=== PATIENT | male | born 1990 | race Caucasian/White ===

== ENCOUNTER 2022-06-30 19:03 | Emergency (ER) | payer OTHER, SELFPAY ==
--- NOTE | ~2022-06-30 | US_ITS ---
EXAMINATION: US ABDOMEN LIMITED CLINICAL INFORMATION: Right upper quadrant pain. COMPARISON: None TECHNIQUE: Real-time imaging of the right upper quadrant abdominal viscera. FINDINGS: PANCREAS: Normal. LIVER: The liver is normal in size. The liver contour is normal. Parenchymal echogenicity is increased. No focal hepatic lesion. There is no intrahepatic biliary duct dilatation seen. GALLBLADDER: Normal. The gallbladder is physiologically distended without evidence of stones, sludge, polyps, wall thickening or pericholecystic fluid. COMMON BILE DUCT: Normal in caliber measuring 0.2 cm in diameter. RIGHT KIDNEY: Normal. No hydronephrosis. No renal calculi or focal parenchymal lesions. The kidney measures 12.4 cm in maximum dimension. FREE FLUID: None. US/US abdomen limited IMPRESSION: Hepatic steatosis without focal lesion. Visualized pancreas, gallbladder, CBD and right kidney is unremarkable.
[2022-06-30 19:41] VITALS: BP 128/70; PULSE 82; RESP 18; O2SAT 97; BMI 42.5
--- NOTE | 2022-06-30 19:43 | ED_ITS ---
HPI - Abdominal Pain General Chief Complaint: Abdominal Pain <TONIA Tejada - Last Filed: 06/30/22 19:44> Stated Complaint: Abdominal pain <TONIA Tejada - Last Filed: 06/30/22 19:44> Time Seen by Provider: 07/01/22 01:35 <TONIA Tejada - Last Filed: 06/30/22 19:44> Source: patient and family <Millicent Orantes MD - Last Filed: 07/01/22 01:56> Mode of arrival: ambulatory <Millicent Orantes MD - Last Filed: 07/01/22 01:56> Limitations: no limitations <Millicent Orantes MD - Last Filed: 07/01/22 01:56> History of Present Illness HPI narrative: 32-year-old male came in for complaint of upper abdominal/ right upper quadrant abdominal pain for 2 days. Pain is constant mostly localized to the epigastric/ right upper quadrant area described as dull aching pain and moderate 5/10, no radiation, sometimes is worse with food otherwise no relieving factor, patient smokes marijuana every day but do not drink alcohol never had similar symptoms in the past, no history of abdominal surgery, no dysuria, no frequency urination.Pain sometimes associ ated with nausea but no vomiting or diarrhea. Normal bowel movement last BM was earlier today. <Millicent Orantes MD - Last Filed: 07/01/22 01:56> Related Data Home Medications: Previous Rx's Medication Instructions Recorded cyclobenzaprine 10 mg tablet 10 mg PO TID PRN muscle spasm #90 11/10/21 tabs gabapentin 300 mg capsule 300 mg PO BEDTIME #30 caps 11/10/21 omeprazole magnesium 20 mg 20 mg PO BID #30 tabs 07/01/22 tablet,delayed release (Prilosec OTC) <TONIA Tejada - Last Filed: 06/30/22 19:44> Allergies/Adverse Reactions: Allergies Allergy/AdvReac Type Severity Reaction Status Date / Time ibuprofen [From Motrin] Allergy Unknown hematuria Verified 11/10/21 12:16 <TONIA Tejada Last Filed: 06/30/22 19:44> Review of Systems Review of Systems All other systems are reviewed and are negative Constitutional: Reports as per HPI and Reports no additional constitutional complaints Eyes: Reports as per HPI and Reports no additional eye complaints Reports system reviewed and no additional complaints, except as documented Cardiovascular: Reports as per HPI and Reports no additional cardiovascular complaints Respiratory: Reports as per HPI and Reports no additional respiratory complaints Gastrointestinal: Reports as per HPI and Reports no additional gastrointestinal complaints Genitourinary: Reports no additional female genitourinary complaints Musculoskeletal: Reports no additional musculoskeletal complaints Skin/Breast: Reports system reviewed and no additional complaints, except as docu Psychiatric: Reports no additional psychiatric complaints Endocrine: Reports no additional endocrine complaints Hematologic/Lymphatic: Reports no additional hematologic/lymphatic complaints Allergic/Immunologic: Reports no additional allergic/immunologic complaints Reports system reviewed and no additional complaints, except as documented and Reports Abnormal speech present <Millicent Orantes MD - Last Filed: 07/01/22 01:56> [facility], [facility] Past Medical History Surgical History: Surgical History No pertinent past surgical history <TONIA Tejada - Last Filed: 06/30/22 19:44> Family History Family History: Family History Father Medical history unknown Mother Medical history unknown Brother In good health Brother In good health Brother No problems noted. Brother In good health <TONIA Tejada - Last Filed: 06/30/22 19:44> Social History Social History: Social History Housing: Apartment Patient Tobacco Use Status: Never used Tobacco Advance Directives: No Advance Directives Information Provided: No service: No <TONIA Tejada - Last Filed: 06/30/22 19:44> Physical Exam ED Vital Signs: Vital Signs - 24 hr 06/30/22 19:41 06/30/22 19:45 07/01/22 00:32 Temperature 98.2 F 98.3 F Pulse Rate 82 80 Respiratory Rate 18 18 Blood Pressure 128/70 117/67 Pulse Oximetry 97 98 Oxygen Delivery Method Room Air 07/01/22 01:07 Temperature 99.2 F Pulse Rate 84 Respiratory Rate 16 Blood Pressure 125/67 Pulse Oximetry 97 Oxygen Delivery Method Room Air BMI result Body Mass Index 42.5 <TONIA Tejada - Last Filed: 06/30/22 19:44> Vital Signs - 24 hr 06/30/22 19:41 06/30/22 19:45 07/01/22 00:32 Temperature 98.2 F 98.3 F Pulse Rate 82 80 Respiratory Rate 18 18 Blood Pressure 128/70 117/67 Pulse Oximetry 97 98 Oxygen Delivery Method Room Air 07/01/22 01:07 Temperature 99.2 F Pulse Rate 84 Respiratory Rate 16 Blood Pressure 125/67 Pulse Oximetry 97 Oxygen Delivery Method Room Air BMI result Body Mass Index 42.5 vital signs have been reviewed as appeared to be correct. Blood pressure normal. Heart rate normal. Respiration rate normal. Temperature normal. Oxygen saturation normal. <Millicent Orantes MD - Last Filed: 07/01/22 01:56> Appearance: Alert. Oriented X3. No acute distress. Head: Normal external exam. Normocephalic. Atraumatic. No Weller signs noted. No raccoon eyes noted Eyes: PERRLA. EOMI. Conjunctiva and sclera normal. Eyelids normal. ENT: TM's Normal. Pharynx normal. Uvula midline. Moist mucous membranes. No trismus noted. No drooling noted. No muffled voice noted. Neck: Normal inspection. Neck supple. FROM. No adenopathy. Thyroid Normal. No meningeal signs. No neck mass noted. CVS: Normal heart rate and rhythm. Heart sound normal. No murmurs noted. Pulses normal throughout. Respiratory: No respiratory distress. Painless inspiration. Breath sounds normal. No wheezes/rales/rhonchi noted. Chest nontender. No accessory muscle u rela noted or decreased air movement noted. Abdomen: Obese, Soft and nontender. Bowel sounds normal in all 4 quadrants. No distention noted. No organomegaly noted. No visible injury noted. Back: No CVA tenderness. Full range of motion noted. Skin: Skin warm and dry. Normal skin color. Normal skin turgor. No rashes/lesions/lacerations noted. Extremities: No lower extremity edema. Extremities exhibit normal range of motion. Extremities nontender. Neuro: Oriented X 3. Cranial nerve exam: II-XII are grossly intact No motor deficit. No sensory deficit. Reflexes normal. <Millicent Orantes MD - Last Filed: 07/01/22 01:56> Course Course Course Narrative: 1941 32 yo M hx of obesity presents w/ epigastric/RUQ pain X2 days w/ some associated nausea. PE w/ mild ruq tenderness Plan- UA, labs, imaging <TONIA Tejada - Last Filed: 06/30/22 19:44> Reevaluation(s) Reevaluation #1: upper abdominal pain for 2 days, now pain is improved while in the ED, physical exam and history is consistent with gastritis will start the patient on Prilosec and follow-up with GI. <Millicent Orantes MD - Last Filed: 07/01/22 01:56> Medical Decision Making Differential Diagnosis Differential Diagnoses: The differential diagnosis associated with the presentation includes ( Gastritis, pancreatitis, gallbladder disease, liver disease.) <Millicent Orantes MD - Last Filed: 07/01/22 01:56> Lab Data MDM Lab Attestation statement: I reviewed the patient's lab results. <Millicent Orantes MD - Last Filed: 07/01/22 01:56> Result Diagrams: : 06/30/22 20:03 06/30/22 20:03 <TONIA Tejada - Last Filed: 06/30/22 19:44> Labs: Lab Results 06/30/22 06/30/22 06/30/22 Range/Units 20:03 20:03 20:06 WBC 7.6 (4.8-10.8) X10*3/uL RBC 5.71 (4.60-5.80) X10*6/uL Hgb 15.4 (14.0-18.0) g/dl Hct 46.3 (42.0-52.0) % MCV 81.1 (80.0-98.0) fL MCH 27.0 (27.0-33.0) pg MCHC 33.3 (31.0-36.0) g/dl RDW 12.6 (11.0-16.0) % Plt Count 301 (160-400) X10*3/uL MPV 9.2 L (9.4-12.4) fL Immature Gran % (Auto) 0.9 H (0.0-0.4) % Neut % (Auto) 59.1 (45-73) % Lymph % (Auto) 25.9 (20-40) % [place] % (Auto) 12.0 H (2-11) % Eos % (Auto) 0.9 (0-4) % Baso % (Auto) 1.2 (0-2) % Lymph # (Auto) 2.0 (1.2-4.9) X10*3/uL [place] # (Auto) 0.9 (0.1-1.2) X10*3/uL Eos # (Auto) 0.1 (0.0-0.4) X10*3/uL Baso # (Auto) 0.1 (0.0-0.2) X10*3/uL Abs Immat Gran (auto) 0.07 H (0.00-0.03) X10*3/uL Absolute Neuts (auto) 4.5 (2.0-8.3) x10*3/uL Absolute Nucleated RBC 0.000 (0.0-0.012) X10*3/uL Nucleated RBC % (auto) 0.0 (0.0-0.2) /100WBC Sodium 139 (135-145) mmol/L Potassium 4.4 (3.3-5.1) mmol/L Chloride 104 (96-108) mmol/L Carbon Dioxide 28 (22-29) mmol/L Anion Gap 11 L (12-20) BUN 9 (9-16) mg/dL Creatinine 0.75 (0.5-1.4) mg/dL Estim Creat Clear Calc 187.0 Estimated GFR > 60 Random Glucose 92 (60-115) mg/dL Calcium 9.7 (8.4-10.2) mg/dL Magnesium 2.1 (1.6-2.6) mg/dL Total Bilirubin 0.6 (0.0-1.0) mg/dL AST 30 (5-37) U/L ALT 51 H (0-40) U/L Alkaline Phosphatase 103 (39-117) U/L Total Protein 8.1 H (6.5-8.0) g/dL Albumin 4.8 (3.5-5.0) g/dL Lipase 10 (8-78) U/L Urine Color Yellow Urine Appearance Clear Urine pH 7.5 (5.0-9.0) Ur Specific [place] 1.010 (1.005-1.025) Urine Protein Negative (Neg-Trace) mg/dL Urine Glucose (UA) Negative (Negative) mg/dL Urine Ketones Negative (Negative) mg/dL Urine Blood Negative (Negative) Urine Nitrite Negative (Negative) Ur Leukocyte Esterase Negative (Negative) <TONIA Tejada - Last Filed: 06/30/22 19:44> Lab Results 06/30/22 06/30/22 06/30/22 Range/Units 20:03 20:03 20:06 WBC 7.6 (4.8-10.8) X10*3/uL RBC 5.71 (4.60-5.80) X10*6/uL Hgb 15.4 (14.0-18.0) g/dl Hct 46.3 (42.0-52.0) % MCV 81.1 (80.0-98.0) fL MCH 27.0 (27.0-33.0) pg MCHC 33.3 (31.0-36.0) g/dl RDW 12.6 (11.0-16.0) % Plt Count 301 (160-400) X10*3/uL MPV 9.2 L (9.4-12.4) fL Immature Gran % (Auto) 0.9 H (0.0-0.4) % Neut % (Auto) 59.1 (45-73) % Lymph % (Auto) 25.9 (20-40) % [place] % (Auto) 12.0 H (2-11) % Eos % (Auto) 0.9 (0-4) % Baso % (Auto) 1.2 (0-2) % Lymph # (Auto) 2.0 (1.2-4.9) X10*3/uL [place] # (Auto) 0.9 (0.1-1.2) X10*3/uL Eos # (Auto) 0.1 (0.0-0.4) X10*3/uL Baso # (Auto) 0.1 (0.0-0.2) X10*3/uL Abs Immat Gran (auto) 0.07 H (0.00-0.03) X10*3/uL Absolute Neuts (auto) 4.5 (2.0-8.3) x10*3/uL Absolute Nucleated RBC 0.000 (0.0-0.012) X10*3/uL Nucleated RBC % (auto) 0.0 (0.0-0.2) /100WBC Sodium 139 (135-145) mmol/L Potassium 4.4 (3.3-5.1) mmol/L Chloride 104 (96-108) mmol/L Carbon Dioxide 28 (22-29) mmol/L Anion Gap 11 L (12-20) BUN 9 (9-16) mg/dL Creatinine 0.75 (0.5-1.4) mg/dL Estim Creat Clear Calc 187.0 Estimated GFR > 60 Random Glucose 92 (60-115) mg/dL Calcium 9.7 (8.4-10.2) mg/dL Magnesium 2.1 (1.6-2.6) mg/dL Total Bilirubin 0.6 (0.0-1.0) mg/dL AST 30 (5-37) U/L ALT 51 H (0-40) U/L Alkaline Phosphatase 103 (39-117) U/L Total Protein 8.1 H (6.5-8.0) g/dL Albumin 4.8 (3.5-5.0) g/dL Lipase 10 (8-78) U/L Urine Color Yellow Urine Appearance Clear Urine pH 7.5 (5.0-9.0) Ur Specific [place] 1.010 (1.005-1.025) Urine Protein Negative (Neg-Trace) mg/dL Urine Glucose (UA) Negative (Negative) mg/dL Urine Ketones Negative (Negative) mg/dL Urine Blood Negative (Negative) Urine Nitrite Negative (Negative) Ur Leukocyte Esterase Negative (Negative) <Millicent Orantes MD - Last Filed: 07/01/22 01:56> Independent Interpretation I performed an independent interpretation of an: Ultrasound ( Abdomen: No acute pathology.) <Millicent Orantes MD - Last Filed: 07/01/22 01:56> Radiology Impression Discussion of test interpretation with radiology: I have reviewed the radiologist's reading. <Millicent Orantes MD - Last Filed: 07/01/22 01:56> Discharge Plan Discharge Clinical Impression: Epigastric pain, Gastritis <TONIA Tejada - Last Filed: 06/30/22 19:44> Patient Disposition: Home, Self-Care <TONIA Tejada - Last Filed: 06/30/22 19:44> Instructions: Gastritis (ED) <TONIA Tejada - Last Filed: 06/30/22 19:44> Prescriptions: New omeprazole magnesium [Prilosec OTC] 20 mg tablet,delayed release (DR/EC) 20 mg PO BID Qty: 30 0RF No Action cyclobenzaprine 10 mg tablet 10 mg PO TID PRN (Reason: muscle spasm) Qty: 90 0RF gabapentin 300 mg capsule 300 mg PO BEDTIME Qty: 30 0RF <TONIA Tejada - Last Filed: 06/30/22 19:44> Referrals: Khadra Conte MD [Physician] - Josseline Rodriguez NP [Primary Care Provider] - <TONIA Tejada - Last Filed: 06/30/22 19:44>
[2022-06-30 19:45] VITALS: TEMP 36.8
[2022-06-30 20:06] LABS: MANUAL DIFF FLAG NO
[2022-06-30 20:07] LABS: Basophils Absolute Auto 0.1 X10*3/uL (0.0-0.2); Basophils Percent Auto 1.2 % (0-2); Eosinophils Absolute Auto 0.1 X10*3/uL (0.0-0.4); Eosinophils Percent Auto 0.9 % (0-4); Hematocrit 46.3 % (42.0-52.0); Hemoglobin 15.4 g/dl (14.0-18.0); Imm Gran Abs Auto 0.07 X10*3/uL (0.00-0.03); Imm Gran Pct Auto 0.9 % (0.0-0.4); Lymphocytes Percent Auto 25.9 % (20-40); Mean Corpuscular HGB Conc 33.3 g/dl (31.0-36.0); Mean Corpuscular Volume 81.1 fL (80.0-98.0); Mean Platelet Volume 9.2 fL (9.4-12.4); Monocytes Absolute Auto 0.9 X10*3/uL (0.1-1.2); Neutrophils Absolute Auto 4.5 x10*3/uL (2.0-8.3); Neutrophils Percent Auto 59.1 % (45-73); Platelet Count 301 X10*3/uL (160-400); Red Blood Count 5.71 X10*6/uL (4.60-5.80); Red Cell Distribution Width 12.6 % (11.0-16.0); White Blood Count 7.6 X10*3/uL (4.8-10.8)
[2022-06-30 20:13] LABS: Appearance Urine Clear; Color Urine Yellow; Glucose Urine UA Negative (Negative); Leukocyte Esterase Urine Negative (Negative); Nitrite Urine Negative (Negative); PH 7.5 (5.0-9.0); Urine Blood Negative (Negative); Urine Ketones Negative (Negative); Urine Protein Negative (Neg-Trace)
[2022-06-30 20:40] LABS: Alanine Aminotransferase 51 U/L (0-40); Albumin Level 4.8 g/dL (3.5-5.0); Alkaline Phosphatase 103 U/L (39-117); Anion Gap 11 (12-20); Aspartate Amino Transferase 30 U/L (5-37); Bilirubin Total 0.6 mg/dL (0.0-1.0); Blood Urea Nitrogen 9 mg/dL (9-16); Calcium 9.7 mg/dL (8.4-10.2); Carbon Dioxide 28 mmol/L (22-29); Chloride 104 mmol/L (96-108); Estimated Glomerular Filt Rate > 60; Glucose Random 92 mg/dL (60-115); Lipase 10 U/L (8-78); Magnesium 2.1 mg/dL (1.6-2.6); Potassium 4.4 mmol/L (3.3-5.1); Sodium 139 mmol/L (135-145); Total Protein 8.1 g/dL (6.5-8.0)
[2022-07-01 00:32] VITALS: BP 117/67; PULSE 80; RESP 18; TEMP 36.8; O2SAT 98
[2022-07-01 01:07] VITALS: BP 125/67; PULSE 84; RESP 16; TEMP 37.3; O2SAT 97
[2022-07-01] MEDS: Omeprazole 40 MG CAPSULE.DR PO (02:19)
[2022-07-01] MEDS: Magnesium Hydrox/Alum Hydrox 30 ML ORAL.SUSP PO (02:19)
== END 2022-07-01 02:22 | disposition home or self-care (01) ==
PROVIDERS: Physician Assistant; Emergency Provider Emergency Medicine; PCP Hospitalist
DX: K29.70 Gastritis, unspecified, without bleeding (principal); R10.11 Right upper quadrant pain; R10.13 Epigastric pain; Z79.899 Other long term (current) drug therapy
CPT/HCPCS: 36415; 76705; 80053; 81003; 83690; 83735; 85025; 99283; 99284

== ENCOUNTER 2024-02-22 20:21 | Emergency (ER) | payer OTHER, SELFPAY ==
[2024-02-22 20:47] VITALS: BP 119/77; PULSE 94; RESP 16; TEMP 36.7; O2SAT 97; BMI 41.0
--- NOTE | 2024-02-22 20:49 | ED.GENADULT ---
HPI - General Adult General Stated complaint: rt side ache/drinking fluids not going to bathroom Related Data Previous Rx's ?Medication ?Instructions ?Recorded cyclobenzaprine 10 mg tablet 10 mg PO TID PRN muscle spasm #90 11/10/21 tabs gabapentin 300 mg capsule 300 mg PO BEDTIME #30 caps 11/10/21 omeprazole magnesium 20 mg 20 mg PO BID #30 tabs 07/01/22 tablet,delayed release (Prilosec OTC) Allergies Allergy/AdvReac Type Severity Reaction Status Date / Time ibuprofen [From Motrin] Allergy Unknown hematuria Verified 11/10/21 12:16 PMFSH Past Medical History Surgical History No pertinent past surgical history Family History Family History Father Medical history unknown Mother Medical history unknown Brother In good health Brother In good health Brother No problems noted. Brother In good health Social History Social History Housing: Apartment Patient Tobacco Use Status: Never used Tobacco service: No Course Course Course Narrative: RME, this is a rapid medical exam performed by Dustin Mejia please refer to primary provider for complete H&P- 33-year-old male presents for evaluation of lower abdominal/pelvic pain for last 3 days. Also reports some flank pain. He reports burning with urination decreased urination. Plan for labs, urinalysis and bladder scan Discharge Plan Discharge Prescriptions: No Action omeprazole magnesium [Prilosec OTC] 20 mg tablet,delayed release (DR/EC) 20 mg PO BID Qty: 30 0RF cyclobenzaprine 10 mg tablet 10 mg PO TID PRN (Reason: muscle spasm) Qty: 90 0RF gabapentin 300 mg capsule 300 mg PO BEDTIME Qty: 30 0RF Print Language: Bengali
[2024-02-22 21:11] LABS: MANUAL DIFF FLAG NO
[2024-02-22 21:12] LABS: Basophils Absolute Auto 0.1 X10*3/uL (0.0-0.2); Basophils Percent Auto 0.7 % (0-2); Eosinophils Percent Auto 0.4 % (0-4); Hematocrit 44.9 % (42.0-52.0); Hemoglobin 15.4 g/dl (14.0-18.0); Imm Gran Abs Auto 0.06 X10*3/uL (0.00-0.03); Imm Gran Pct Auto 0.7 % (0.0-0.4); Lymphocytes Absolute Auto 2.1 X10*3/uL (1.2-4.9); Lymphocytes Percent Auto 23.6 % (20-40); Mean Corpuscular HGB Conc 34.3 g/dl (31.0-36.0); Mean Corpuscular Hemoglobin 27.7 pg (27.0-33.0); Mean Corpuscular Volume 80.9 fL (80.0-98.0); Mean Platelet Volume 9.3 fL (9.4-12.4); Monocytes Absolute Auto 0.9 X10*3/uL (0.1-1.2); Monocytes Percent Auto 9.8 % (2-11); Neutrophils Absolute Auto 5.9 x10*3/uL (2.0-8.3); Neutrophils Percent Auto 64.8 % (45-73); Platelet Count 347 X10*3/uL (160-400); Red Blood Count 5.55 X10*6/uL (4.60-5.80); Red Cell Distribution Width 12.6 % (11.0-16.0); White Blood Count 9.1 X10*3/uL (4.8-10.8)
[2024-02-22 21:15] LABS: Appearance Urine Clear; Color Urine Dark Yellow; Glucose Urine UA Negative (Negative); Leukocyte Esterase Urine Negative (Negative); Nitrite Urine Negative (Negative); PH 5.5 (5.0-9.0); Specific Gravity - Urine >= 1.030 (1.005-1.025); UMIC TRIGGER UACC YES; Urine Blood Small (1+) (Negative); Urine Ketones 15 mg/dL (Negative); Urine Protein 30 (1+) mg/dL (Neg-Trace)
[2024-02-22 21:29] LABS: Alanine Aminotransferase 54 U/L (0-40); Alkaline Phosphatase 97 U/L (39-117); Anion Gap 16 (12-20); Aspartate Amino Transferase 30 U/L (5-37); Bilirubin Total 0.8 mg/dL (0.0-1.0); Blood Urea Nitrogen 11 mg/dL (9-16); Calcium 10.4 mg/dL (8.4-10.2); Carbon Dioxide 24 mmol/L (22-29); Chloride 104 mmol/L (96-108); Creatinine Clr Calc Pharmacy 168.2; Estimated Glomerular Filt Rate > 60; Glucose Random 98 mg/dL (60-115); Lipase 8 U/L (8-78); Potassium 3.5 mmol/L (3.3-5.1); Sodium 140 mmol/L (135-145); Total Protein 8.7 g/dL (6.5-8.0)
[2024-02-22 21:54] LABS: Bacteria Urine None Seen (None Seen); WBC Urine 0-5 /HPF (0-5)
--- NOTE | 2024-02-23 02:45 | PC.NURSE ---
pt told this RN he has to leave to go waste picker his car and that he is going to check back in later today to be seen. MD aware however pt says he cannot wait. pt in no apparent distress ambulates with steady gait on his way out of tx room 2
--- NOTE | 2024-02-23 03:16 | PC.NURSE ---
Pt presented to transformation analyst about leaving without being seen. See Note from Charity for details.
== END 2024-02-23 03:19 | disposition left against medical advice (07) ==
PROVIDERS: Physician Assistant; Emergency Provider Emergency Medicine; PCP Internal Medicine
DX: R10.2 Pelvic and perineal pain (principal); Z79.899 Other long term (current) drug therapy
CPT/HCPCS: 36415; 80053; 81001; 83690; 85025; 99281; 99284

== ENCOUNTER 2024-02-23 03:27 | Emergency (ER) | payer OTHER, SELFPAY ==
--- NOTE | ~2024-02-23 | CT_ITS ---
EXAMINATION: CT ABDOMEN AND PELVIS WITHOUT CONTRAST CLINICAL INFORMATION: Right flank pain, hematuria COMPARISON: CT scan of abdomen and pelvis on 12/22/2014 TECHNIQUE: Multidetector volumetric imaging was performed from the superior aspect of the liver through the pubic symphysis. Sagittal and coronal reformatted images were obtained on the technologist's workstation. This CT examination was performed using dose optimization techniques as appropriate, variously including the following: *Automated exposure control *Adjustment of mA and/or kV according to patient size (this includes techniques or standardized protocols for targeted exams where dose is matched to indication/reason for exam; i.e. extremities or head) *Use of iterative reconstruction technique DLP: 823 mGy-cm FINDINGS: CT ABDOMEN LUNG BASES: Bilateral lung bases are clear. LIVER: There is persistent hepatic steatosis, mean attenuation of 13 Hounsfield units, compared to splenic attenuation of 31 Hounsfield units. GALLBLADDER AND BILIARY TREE: Gallbladder appears unremarkable without calcified stones. Common bile duct is not dilated. SPLEEN: There is persistent mild splenomegaly, measuring 15.0 cm in AP length (previously 15.5 cm). PANCREAS: The pancreas appears unremarkable on noncontrast enhanced images. ADRENAL GLANDS: Right adrenal body low density lesion is seen measuring 1.7 x 1.6 cm in size, mean attenuation of -2.4 Hounsfield units, consistent with benign adenoma. Left adrenal gland is normal in shape and size. KIDNEYS: The visualized bilateral kidneys are normal in size without stones. No caliectasis or dilated pelvis is seen. No dilated ureters are found. BOWELS: There is no abnormal dilatation of the large and small bowel loops. RETROPERITONEUM: No abnormally enlarged retroperitoneal lymph nodes, mass or hematoma could be seen. BLOOD VESSELS: Abdominal aorta is normal in size and smooth in outline. ABDOMINAL WALL: Abdominal subcutaneous tissue and muscle are intact. No evidence of ventral hernia. PERITONEUM: There is no ascites. There were no abdominal peritoneal inflammatory changes seen. No free peritoneal air was seen. BONES: No fracture or dislocation. No focal bone lesion diagnostic of metastatic disease could be seen in the lumbar region. CT PELVIS URINARY BLADDER: The visualized urinary bladder is normal, filled with urine. No intraluminal stones are found. No abnormally dilated distal ureters are seen. BOWELS: There is no abnormal dilatation of the large and small bowel loops. Normal appendix is seen projecting medial and inferior to the cecum. GENITAL ORGANS: Seminal vesicles are unremarkable. Prostate gland is normal. LYMPH NODES: No abnormally enlarged iliac or inguinal lymph nodes are seen. PERITONEUM: No inflammatory changes, ascites or free peritoneal air are found in the pelvis. BONES: No fracture or dislocation. No focal bone lesion diagnostic of metastatic disease could be seen in the pelvis. CT/CT abdomen pelvis wo IV con IMPRESSION: 1. Unchanged, No evidence of radiopaque urinary tract calculi or obstructive uropathy. 2. Persistent Hepatic steatosis. 3. Interval development of Right adrenal adenoma. 4. Interval decrease in Mild splenomegaly. Fleischner guidelines were followed. Electronically signed by: Edison Bravo MD 02/23/2024 09:22 AM EDT
[2024-02-23 03:37] VITALS: BP 124/77; PULSE 78; RESP 16; TEMP 36.7; O2SAT 98; BMI 41.5
[2024-02-23 06:18] VITALS: BP 114/76; PULSE 88; RESP 16; TEMP 36.7; O2SAT 96
--- NOTE | 2024-02-23 07:36 | ED_ITS ---
HPI - Abdominal Pain General Chief Complaint: Abdominal Pain Stated Complaint: gen med, was here earlier Time Seen by Provider: 02/23/24 07:35 Source: patient Mode of arrival: ambulatory Limitations: no limitations History of Present Illness ED Provider: Dylan Paz PA-C HPI narrative: 33 yo male with history of morbid obesity presents to the ER for evaluation of 4 days of intermittent right lower quadrant pain that radiates to his right flank and right lower back. He states the pain comes and goes and is sharp in nature. Nothing seems to make it worse or better. It is not associated with any nausea, vomiting or diarrhea. He reports having normal bowel movements, last was yesterday. He denies any urinary symptoms including urgency, frequency, hematuria, dysuria. No penile discharge or scrotal pain. No history of surgery on his abdomen. MD elicited complaint: abdominal pain and flank pain Pertinent past history: none Onset (ago): day(s) (4) Pain Consistency: intermittent Location: RLQ Severity: moderate Quality: stabbing Radiation: R flank and back Migration to: no migration Exacerbating factors: nothing Relieving factors: nothing Related Data Previous Rx's ?Medication ?Instructions ?Recorded cyclobenzaprine 10 mg tablet 10 mg PO TID PRN muscle spasm #90 11/10/21 tabs gabapentin 300 mg capsule 300 mg PO BEDTIME #30 caps 11/10/21 omeprazole magnesium 20 mg 20 mg PO BID #30 tabs 07/01/22 tablet,delayed release (Prilosec OTC) cyclobenzaprine 10 mg tablet 10 mg PO TID PRN muscle spasm #10 02/23/24 tabs ibuprofen 600 mg tablet 600 mg PO Q8H PRN pain #14 tabs 02/23/24 Allergies Allergy/AdvReac Type Severity Reaction Status Date / Time ibuprofen [From Motrin] Allergy Unknown hematuria Verified 02/23/24 03:38 Review of Systems Review of Systems Yes all other systems are reviewed and are negative PMFSH Past Medical History Surgical History No pertinent past surgical history Family History Family History Father Medical history unknown Mother Medical history unknown Brother In good health Brother In good health Brother No problems noted. Brother In good health Social History Social History Housing: Apartment Patient Tobacco Use Status: Never used Tobacco Smoked in Last 30 Days: No Use of substances other than those prescribed or required for medical reasons: No Advance Directives: No Advance Directives Information Provided: No Do you have a plan to hurt others: No Plan service: No Physical Exam ED Vital Signs: Vital Signs - 24 hr 02/23/24 03:37 02/23/24 06:18 Temperature 98.0 F 98.1 F Pulse Rate 78 88 Respiratory Rate 16 16 Blood Pressure 124/77 114/76 Pulse Oximetry 98 96 Oxygen Delivery Method Room Air Room Air BMI result Body Mass Index 41.5 Appearance: Alert. Oriented X3. No acute distress. Head: normocephalic, atraumatic. Eyes: Pupils equal, round and reactive to light. ENT: Pharynx normal. No tonsillar swelling or exudate. Neck: Normal inspection. Neck supple. CVS: Normal heart rate and rhythm. Pulses normal. Respiratory: No respiratory distress. Breath sounds normal. Abdomen: Obese, Soft and nontender. +BS x4 Back: Normal inspection. Soft tissue tenderness of the right lower back, no midline tenderness. Skin: Skin warm and dry. Normal skin color. Normal skin turgor. No rashes. Extremities: No lower extremity edema. No joint swelling. Neuro/psych: Oriented X 3. No motor deficit. No sensory deficit. CN II-XII intact. Normal speech and cognition. Medical Decision Making Medical Decision Making MDM Narrative: 33-year-old male presents to the ER for evaluation of right lower quadrant abdominal pain that radiates to his back and flank. It comes and goes in his intermittent in nature. No urinary symptoms although he did tell provider yesterday that he was having burning with urination and trouble urinating. He adamantly denies these complaints today. Left after laboratory done yesterday and is back today for re-evaluation. His physical exam is benign, his abdomen is soft. He has no CVA tenderness. His labs did show some microscopic hematuria so concern was for possible kidney stone. CT scan was done which does not show any evidence of ureteral stone, hydronephrosis or pyelonephritis. His UA is negative for infection. His vital signs are stable. He is comfortable. He is stable for discharge home with NSAIDs, muscle relaxers for possible muscular pain of his back and outpatient follow-up. Patient is in stable for discharge Differential Diagnosis Differential Diagnoses: The differential diagnosis associated with the presentation includes Any stone, hydronephrosis, pyelonephritis, UTI, appendicitis, muscular pain Admission/Observation Consideration of admission/observation: Escalation of care including admission/observation considered Lab Data MDM Lab Attestation statement: I reviewed the patient's lab results. No leukocytosis, no anemia, normal renal function Independent Interpretation I performed an independent interpretation of an: CT Scan Interpretation: CT scan without any ureteral stone or hydronephrosis, agrees radiology read Radiology Impression Discussion of test interpretation with radiology: I have reviewed the radiologist's reading. Radiologist Impression: EXAMINATION: CT ABDOMEN AND PELVIS WITHOUT CONTRAST CLINICAL INFORMATION: Right flank pain, hematuria COMPARISON: CT scan of abdomen and pelvis on 12/22/2014 TECHNIQUE: Multidetector volumetric imaging was performed from the superior aspect of the liver through the pubic symphysis. Sagittal and coronal reformatted images were obtained on the technologist's workstation. This CT examination was performed using dose optimization techniques as appropriate, variously including the following: *Automated exposure control *Adjustment of mA and/or kV according to patient size (this includes techniques or standardized protocols for targeted exams where dose is matched to indication/reason for exam; i.e. extremities or head) *Use of iterative reconstruction technique DLP: 823 mGy-cm FINDINGS: CT ABDOMEN LUNG BASES: Bilateral lung bases are clear. LIVER: There is persistent hepatic steatosis, mean attenuation of 13 Hounsfield units, compared to splenic attenuation of 31 Hounsfield units. GALLBLADDER AND BILIARY TREE: Gallbladder appears unremarkable without calcified stones. Common bile duct is not dilated. SPLEEN: There is persistent mild splenomegaly, measuring 15.0 cm in AP length (previously 15.5 cm). PANCREAS: The pancreas appears unremarkable on noncontrast enhanced images. ADRENAL GLANDS: Right adrenal body low density lesion is seen measuring 1.7 x 1.6 cm in size, mean attenuation of -2.4 Hounsfield units, consistent with benign adenoma. Left adrenal gland is normal in shape and size. KIDNEYS: The visualized bilateral kidneys are normal in size without stones. No caliectasis or dilated pelvis is seen. No dilated ureters are found. BOWELS: There is no abnormal dilatation of the large and small bowel loops. RETROPERITONEUM: No abnormally enlarged retroperitoneal lymph nodes, mass or hematoma could be seen. BLOOD VESSELS: Abdominal aorta is normal in size and smooth in outline. ABDOMINAL WALL: Abdominal subcutaneous tissue and muscle are intact. No evidence of ventral hernia. PERITONEUM: There is no ascites. There were no abdominal peritoneal inflammatory changes seen. No free peritoneal air was seen. BONES: No fracture or dislocation. No focal bone lesion diagnostic of metastatic disease could be seen in the lumbar region. CT PELVIS URINARY BLADDER: The visualized urinary bladder is normal, filled with urine. No intraluminal stones are found. No abnormally dilated distal ureters are seen. BOWELS: There is no abnormal dilatation of the large and small bowel loops. Normal appendix is seen projecting medial and inferior to the cecum. GENITAL ORGANS: Seminal vesicles are unremarkable. Prostate gland is normal. LYMPH NODES: No abnormally enlarged iliac or inguinal lymph nodes are seen. PERITONEUM: No inflammatory changes, ascites or free peritoneal air are found in the pelvis. BONES: No fracture or dislocation. No focal bone lesion diagnostic of metastatic disease could be seen in the pelvis. CT/CT abdomen pelvis wo IV con IMPRESSION: 1. Unchanged, No evidence of radiopaque urinary tract calculi or obstructive uropathy. 2. Persistent Hepatic steatosis. 3. Interval development of Right adrenal adenoma. 4. Interval decrease in Mild splenomegaly. External Record Review External record reviewed: Outpatient record, Prior outpatient labs and Prior outpatient radiology Prescription Management I considered prescription management with: Pain Medication and Antibiotic Critical Care Time Critical Care Time Critical Care Time: No Discharge Plan Discharge Clinical Impression: Hematuria, microscopic Back pain Qualifiers: Back pain location: low back pain Chronicity: acute Back pain laterality: right Sciatica presence: without sciatica Qualified Code(s): M54.50 - Low back pain, unspecified Patient Disposition: Home, Self-Care Instructions: Hematuria (ED), Back Pain (ED) Additional Instructions: Your CT scan today was reassuring. There was no evidence of kidney stones at this time. You had small amounts of blood in your urine which means you may have recently passed a kidney stone. Your urine test did not show any evidence of infection. Your lab work is otherwise reassuring. Recommend taking the prescribed anti-inflammatories and muscle relaxers as needed for pain. Follow-up with your doctor. If you develop new or worsening symptoms call 911 or come back to the ER for further evaluation. Prescriptions: New cyclobenzaprine 10 mg tablet 10 mg PO TID PRN (Reason: muscle spasm) Qty: 10 0RF ibuprofen 600 mg tablet 600 mg PO Q8H PRN (Reason: pain) Qty: 14 0RF No Action omeprazole magnesium [Prilosec OTC] 20 mg tablet,delayed release (DR/EC) 20 mg PO BID Qty: 30 0RF cyclobenzaprine 10 mg tablet 10 mg PO TID PRN (Reason: muscle spasm) Qty: 90 0RF gabapentin 300 mg capsule 300 mg PO BEDTIME Qty: 30 0RF Referrals: [facility] [Provider Group] Kalyn Kellogg MD [Primary Care Provider] - Print Language: Danish
[2024-02-23 10:41] VITALS: BP 114/76; PULSE 88; RESP 16; TEMP 36.7; O2SAT 96
== END 2024-02-23 10:42 | disposition home or self-care (01) ==
PROVIDERS: Emergency Provider Emergency Medicine; PCP Internal Medicine
DX: M54.50 Low back pain, unspecified (principal); R31.29 Other microscopic hematuria; R10.31 Right lower quadrant pain; R31.9 Hematuria, unspecified; R30.9 Painful micturition, unspecified; Z79.899 Other long term (current) drug therapy
CPT/HCPCS: 74176; 99284